=== PATIENT | female | born 1940 | race Caucasian/White ===

== ENCOUNTER → 2016-10-16 | Outpatient (CLI) | payer OTHER ==
--- NOTE | 2016-10-16 17:10 | DX ---
Chest, PA and Lateral. HISTORY: Cough. Bronchitis. COMPARISON: June 2012. FINDINGS: Heart size is within normal limits. Pulmonary vascularity is normal. Calcified pulmonary no dule seen in the left lower lobe stable in appearance and a couple calcified mediastinal lymph nodes indicating prior granulomatous disease. No evidence for acute airspace consolidation. Mild degenerati ve change is seen in the thoracic spine. IMPRESSION: No evidence for acute cardiopulmonary abnormality.
== END ==
LOC: BMCIMAGING 15:33
PROVIDERS: ATTEND Internal Medicine
DX: R05 Cough (principal); R91.1 Solitary pulmonary nodule; M51.34 Other intervertebral disc degeneration, thoracic region

== ENCOUNTER → 2017-04-06 | Outpatient (CLI) | payer OTHER | LOC: FIMAGING 09:18 | PROVIDERS: ATTEND Obstetrics & Gynecology Gynecology | DX: Z12.31 Encounter for screening mammogram for malignant neoplasm of breast (principal); Z80.3 Family history of malignant neoplasm of breast | CPT/HCPCS: G0202 ==

== ENCOUNTER 2018-03-13 10:36 | Emergency (ER) | payer OTHER ==
--- NOTE | 2018-03-13 11:14 | EDPHY ---
H & P Time Seen by Provider: 03/13/18 10:46 HPI/ROS: CHIEF COMPLAINT: High blood pressure HISTORY OF PRESENT ILLNESS: Patient is a history of hypertension since 1999. She is on diltiazem 240 once a day and losartan 50 twice a day. She last had her blood pressure taken a couple weeks ago in the office. She took it today and it was elevated at home and she presents because a concern for elevated blood pressure. She specifically denies headache or confusion, chest pain or shortness of breath. She has normal urination. No lower extremity swelling. REVIEW OF SYSTEMS: Eye: no change in vision ENT: She has a lot of seasonal allergies with some tightness in her forehead and face and congestion. Cardiac: no chest pain or syncope Pulmonary: no cough or SOB Abdomen: no vomiting, diarrhea, abdominal pain Musculoskeletal: no back pain Skin: no rash Neuro: no headache Constitutional: no fever but has felt tired for the last couple of days : no urinary symptoms A comprehensive 10 point review of systems is otherwise negative aside from elements mentioned in the history of present illness. PAST MEDICAL HISTORY: Hypertension, atrial fibrillation Social history[facility], nonsmoker General Appearance: Alert and conversant, cooperative. Eyes: No scleral icterus. ENT, Mouth: Normal mucous membranes. No facial swelling. No facial erythema. Respiratory: Normal respiratory effort, breath sounds equal, lungs are clear to auscultation. Cardiovascular: Regular rate and rhythm. Gastrointestinal: Abdomen is soft and non tender. Neurological: Alert, face symmetric, normal motor and sensory in extremities. Normally conversant with fluent speech, ambulatory without ataxia. Skin: Warm and dry, no rashes. Musculoskeletal: No peripheral edema. Psychiatric: Not agitated. Emergency Department course/MDM: Discussed with her provider who recommends adding chlorthalidone 25 mg daily. Discussed with the patient and consented. She does not have clinical evidence that she has hypertensive emergency today on evaluation; does not clinically have evidence of CHF, intracranial hemorrhage , hypertensive encephalopathy, renal failure, visual problem. Repeat blood pressure 179/92. Smoking Status: Never smoked Constitutional: Initial Vital Signs Temperature (C) 36.8 C 03/13/18 10:42 Heart Rate 96 03/13/18 10:42 Respiratory Rate 16 03/13/18 10:42 Blood Pressure 192/106 H 03/13/18 10:42 O2 Sat (%) 91 L 03/13/18 10:42 O2 Delivery Mode Room Air Allergies/Adverse Reactions: lisinopril Allergy (Verified 03/13/18 10:40) Home Medications: Medication Instructions Recorded Aspirin 03/13/18 Calcium 03/13/18 Chlorthalidone [Chlorthalidone 25 25 mg PO DAILY #10 tab 03/13/18 mg (*)] Co Q-10 03/13/18 Diltiazem 03/13/18 Eliquis 03/13/18 Forteo 03/13/18 Losartan Potassium 03/13/18 Magnesium 03/13/18 Multivitamins 03/13/18 Omeprazole 03/13/18 Vitamin D3 03/13/18 Medical Decision Making Consult/Admit Bed Type: discussed with Michelle Liriano - Data Points Medications Given: Discontinued Medications Chlorthalidone (Chlorthalidone) 25 mg PO EDNOW ONE Stop: 03/14/18 11:27 Last Admin: 03/13/18 11:56 Dose: 25 mg Departure - Departure Disposition: Home, Routine, Self-Care Clinical Impression: Hypertension Qualifiers: Hypertension type: unspecified Qualified Code(s): I10 - Essential (primary) hypertension Condition: Good Instructions: Chlorthalidone (By mouth), Hypertension (ED) Additional Instructions: Ifrah recommends starting you on a diuretic, chlorthalidone 25mg daily and she will see in the office this week. Referrals: David Carrillo MD [Primary Care Provider] - As per Instructions Ifrah Martinez PA [Physician Patient Access Registrar] - 2-3 days, call for appt. Prescriptions: Chlorthalidone [Chlorthalidone 25 mg (*)] 25 mg PO DAILY #10 tab
[2018-03-13 12:07] VITALS: BP 179/92
[2018-03-14] MEDS ORDERED: CHLORTHALIDONE 25 MG TAB PO ONE (11:26)
== END 2018-03-13 12:07 | disposition home or self-care (01) ==
DX: I10 Essential (primary) hypertension (principal); Z79.01 Long term (current) use of anticoagulants; Z79.82 Long term (current) use of aspirin

== ENCOUNTER → 2018-07-25 | Outpatient (CLI) | payer OTHER | LOC: FIMAGING 13:31 | PROVIDERS: ATTEND Internal Medicine | DX: R05 Cough (principal); R09.89 Other specified symptoms and signs involving the circulatory and respiratory systems ==

== ENCOUNTER → 2018-12-12 | Outpatient (CLI) | payer OTHER | PROVIDERS: ATTEND Internal Medicine | DX: R05 Cough (principal); R73.9 Hyperglycemia, unspecified; R13.10 Dysphagia, unspecified | CPT/HCPCS: 92611-GN ==